=== PATIENT | female | born 1985 | race Caucasian/White ===

== ENCOUNTER 2020-01-21 09:42 | Outpatient (REF) | payer MEDICAID, SELFPAY ==
[2020-01-21 10:16] LABS: Hematocrit 37.6 % (37-47); Mean Corpuscular HGB Conc 31.9 g/dl (31.0-35.0); Mean Corpuscular Volume 84.5 fL (80-98); Mean Platelet Volume 10.5 fL (9.4-12.3); Platelet Count 241 X10*3/uL (160-400); Red Blood Count 4.45 X10*6/uL (4.20-5.50); Red Cell Distribution Width 13.1 % (11.0-16.0); White Blood Count 7.4 X10*3/uL (4.8-10.8)
[2020-01-21 10:47] LABS: Estimated Average Glucose 114 mg/dL; Hemoglobin A1c % 5.6 %
[2020-01-21 10:54] LABS: Alanine Aminotransferase 19 U/L (0-31); Albumin Level 4.3 g/dL (3.5-5.0); Alkaline Phosphatase 102 U/L (39-117); Anion Gap 12 (12-20); Aspartate Amino Transferase 15 U/L (5-31); Bilirubin Total 0.6 mg/dL (0.0-1.0); Blood Urea Nitrogen 8 mg/dL (9-16); Calcium 8.7 mg/dL (8.4-10.2); Carbon Dioxide 27 mmol/L (22-29); Chloride 105 mmol/L (96-108); Cholesterol 143 mg/dL; Creatinine Urine 133.56 mg/dL; Estimated Glomerular Filt Rate > 60; Glucose Fasting 101 mg/dL (60-99); HDL Cholesterol 38 mg/dL; LDL Cholesterol Calculated 86 mg/dl; Microalbum/Creatinine Ratio Ur 3.7 ug/mg cr; Potassium 4.2 mmol/l (3.3-5.1); Sodium 140 mmol/L (135-145); Total Protein 7.1 g/dL (6.5-8.0); Triglycerides 96 mg/dL
[2020-01-21 11:04] LABS: TSH reflex Free T4 1.77 mIU/mL (0.32-4.0); Vitamin D 25-OH Total 13.3 ng/mL (>30)
== END 2020-01-21 09:43 | disposition home or self-care (01) ==
LOC: HO.LAB 09:42
PROVIDERS: PCP Nurse Practitioner Family; Visit Provider Nurse Practitioner Family
DX: G43.909 Migraine, unspecified, not intractable, without status migrainosus (principal); R60.0 Localized edema; Z71.89 Other specified counseling
CPT/HCPCS: 36415; 80053; 80061; 82043; 82306; 83036; 84443; 85027

== ENCOUNTER → 2020-01-30 08:34 | Outpatient (BNVA) | payer MEDICAID, SELFPAY | PROVIDERS: PCP Nurse Practitioner Family; Referring Provider Nurse Practitioner Family; Visit Provider Surgery | DX: L73.2 Hidradenitis suppurativa (principal) | CPT/HCPCS: 99212 ==

== ENCOUNTER 2020-02-20 06:08 | Day surgery (SDC) | payer MEDICAID, SELFPAY ==
[2020-02-13 14:07] VITALS: BMI 44.0
--- NOTE | 2020-02-17 12:04 | HO.ANESPROP2 ---
Documented by User: Gloria Nayak 02/17/20 12:05 HPI - Anesthesia Eval Consult details Narrative: 34yo F for Excision Hidradenitis Groin PMFSH Past Medical History Medical History Chronic back pain Depression Hidradenitis suppurativa History of anemia Hx of migraines Morbid obesity Surgical History Surgical History History of hysterectomy (~01/2019) History of tubal ligation (~2015) Social History Social History Smoking Status: Never smoker Use of substances other than those prescribed or required for medical reasons: No Have you been hit, kicked, punched, or otherwise hurt by someone within the past year? If so, by whom?: No Advance Directives: No Advance Directives Information Provided: No Advance Directives on File: No Recently lost weight without trying: No Meds Allergies Allergy/AdvReac Type Severity Reaction Status Date / Time No Known Allergies Allergy Unverified 02/13/20 14:07 Home Medications Medication Instructions Recorded Confirmed Type propranolol 40 mg tablet 40 mg PO DAILY tab 01/30/20 02/13/20 History cholecalciferol (vitamin D3) 125 mcg PO DAILY 02/13/20 02/13/20 History [Vitamin D3] Exam Exam Date and Time: February 17, 2020 1204 Height,Weight and Vital Signs: Height 5 ft 2 in Weight 109.316 kg Pertinent Lab Results Pertinent Lab Results: Laboratory Tests 01/21/20 01/21/20 10:00 10:00 WBC 7.4 Hgb 12.0 Hct 37.6 Plt Count 241 Sodium 140 Potassium 4.2 Chloride 105 Carbon Dioxide 27 BUN 8 L Creatinine 0.69 Assessment and Plan Assessment Anesthesia Assessment: Chart Reviewed Documented by User: Paty Murphy 02/20/20 07:33 HPI - Anesthesia Eval Consult details Narrative: 34yo female patient for excision of hidradenitis Right groin PMFSH Past Medical History Medical History Chronic back pain Depression Hidradenitis suppurativa History of anemia Hx of migraines Morbid obesity Family History Family history of problems with anesthesia: No Surgical History Surgical History History of hysterectomy (~01/2019) History of tubal ligation (~2015) History of Problems with Anesthesia: No Social History Social History Smoking Status: Never smoker Use of substances other than those prescribed or required for medical reasons: No Have you been hit, kicked, punched, or otherwise hurt by someone within the past year? If so, by whom?: No Advance Directives: No Advance Directives Information Provided: No Advance Directives on File: No Recently lost weight without trying: No Meds Allergies Allergy/AdvReac Type Severity Reaction Status Date / Time No Known Allergies Allergy Unverified 02/13/20 14:07 Home Medications Medication Instructions Recorded Confirmed Type propranolol 40 mg tablet 40 mg PO DAILY tab 01/30/20 02/13/20 History cholecalciferol (vitamin D3) 125 mcg PO DAILY 02/13/20 02/13/20 History [Vitamin D3] Exam Height,Weight and Vital Signs: Vital Signs Temp Pulse Resp BP Pulse Ox 02/20/20 06:35 97.4 F 83 16 121/67 98 Airway Mallampati Class: II TM Dist: >3cm Neck ROM: Full Loose/Missing/Broken Teeth: No Heart: RRR Lungs: CTAB Assessment and Plan Assessment Anesthesia Assessment: Anesthesia Plan Discussed and Chart Reviewed Final Anesthetic Review NPO: Yes ASA Class: III Final Preanesthetic Review: No Changes in Pt Med Stat, Meds/Allgs Chart Reviewed, Consent Obtained/Reviewed and Anes Risks/Benef Reviewed Patient Risk: Intermediate Procedure Risk: Low Anesthetic Plan Anesthetic Plan: GA Disposition: Standard PACU
[2020-02-20] VITALS (8 sets, daily range): BP systolic 106–128; BP diastolic 67–76; PULSE 83–102; RESP 12–20; TEMP 36.1–36.7; O2SAT 93–99
[2020-02-20] MEDS: Lactated Ringers 1,000 ML 100 ML IVCONT (06:42)
[2020-02-20] MEDS: ceFAZolin Sodium/Dextrose,Iso 2 GM/50 ML PIGGYBACK IV (06:43)
--- NOTE | 2020-02-20 07:25 | MHC.SHP ---
Pre-Procedural Eval Section B Chief Complaint: Hidradenitis Suppurativa Allergies: Allergies Allergy/AdvReac Type Severity Reaction Status Date / Time No Known Allergies Allergy Unverified 02/13/20 14:07 Plan Patient has been examined and remains a candidate for the planned procedure
--- NOTE | 2020-02-20 08:12 | PM.OP ---
Brief Operative Note Date of Service: 02/20/20 Pre-op diagnosis: hidradenitis R groinj Post-op diagnosis: same Procedure: exc of hidradenitis R groin Surgeon: Manjinder Alarcon MD Anesthesia: GLMA Estimated blood loss (mL): 10 Pathology: other (hidradenitis) Condition: stable Disposition: PACU
[2020-02-20] MEDS: oxyCODONE HCl Immed Release 5 MG TABLET 10 MG PO (08:30)
--- NOTE | 2020-02-20 08:35 | OP_ITS ---
SURGEON: Manjinder Alarcon MD INDICATIONS: The patient is a 34-year-old female with note of recurrent area of pain, swelling, and tenderness with drainage on the right groin. She was seen in the office and she was diagnosed to have hidradenitis suppurativa of an area in the right groin at the medial thigh. She understood the technique of excision and she wanted this under anesthesia because of the size and location. She is aware of the risks, benefits, and alternatives. PREOPERATIVE DIAGNOSIS: Hidradenitis suppurativa, right groin. POSTOPERATIVE DIAGNOSIS: Hidradenitis suppurativa, right groin. PROCEDURE PERFORMED: Excision of hidradenitis suppurativa, right groin. ESTIMATED BLOOD LOSS: COMPLICATIONS: ANESTHESIA: ASSISTANTS: SPECIMENS: DESCRIPTION OF PROCEDURE: She was brought to the operating room, placed supine on the table in extreme frogleg position under general anesthesia via laryngeal mask airway. The thighs on both sides were taped apart with wide tape to allow better visualization of the area of the right groin. The area of the induration was prepped and draped in usual sterile fashion. This was near the perineum in the medial aspect of the thigh. A surgical time-out was done. The patient received cefazolin 2 g IV preoperatively. I infiltrated the planned line of incision using a blade #15. I then made an incision around the skin around the area of induration using blade #15, it was carried down to full-thickness skin and subcutaneous fat using electrocautery. We excised all the involved skin and subcutaneous layer using electrocautery. This was sent as specimen. The entire indurated area was included. The open wound therefore measured about 7 cm long and about 2.5 cm wide. I copiously irrigated the area. I made sure that there were no other indurated areas in the deep subcutaneous layer. I then proceeded to undermine both sides to allow closure without tension. I closed incision with multiple nylon 3-0 interrupted sutures. I infiltrated the area with Marcaine 0.5% for postop analgesia. Dressings were then applied. The patient tolerated procedure well and there were no complications noted. Initial and final counts of sponge and instruments were correct. Estimated blood loss was about 10 mL. The patient was extubated without difficulty and transferred to recovery room with stable vital signs. MD JANAK Sandoval/NOLVIA / [id number] [place]IL[place]
--- NOTE | 2020-02-20 09:56 | HO.POSTANES ---
Post Anesthesia Evaluation Post Anesthesia Evaluation Vital Signs: Vital Signs Temp Pulse Resp BP Pulse Ox 02/20/20 09:10 98.0 F 86 16 106/69 97 02/20/20 08:55 88 18 111/70 97 02/20/20 08:40 87 20 106/76 97 02/20/20 08:25 92 12 122/73 93 02/20/20 08:20 95 18 123/70 95 02/20/20 08:15 94 18 128/72 99 02/20/20 08:10 97.0 F 102 H 20 124/72 97 02/20/20 06:35 97.4 F 83 16 121/67 98 Anesthesia: General LMA Mental Status: Awake Pain Control: Satisfactory Nausea/Vomiting: None Hydration: Adequate Anesthesia-Related Issues: No Anes. Related Issues
== END 2020-02-20 09:53 | disposition home or self-care (01) ==
PROVIDERS: PCP Nurse Practitioner Family; Visit Provider Surgery
PROC: (CPT 11462; principal; 2020-02-20 07:30)
DX: L73.2 Hidradenitis suppurativa (principal)
CPT/HCPCS: 11462; 88305; J0690; J1100; J1170; J2250; J2405; J3010

== ENCOUNTER → 2020-03-05 09:34 | Outpatient (BNVA) | payer MEDICAID, SELFPAY | PROVIDERS: PCP Nurse Practitioner Family; Referring Provider Nurse Practitioner Family; Visit Provider Surgery | DX: L73.2 Hidradenitis suppurativa (principal) | CPT/HCPCS: 99212 ==

== ENCOUNTER → 2020-03-22 09:55 | Outpatient (BNVA) | payer MEDICAID, SELFPAY | PROVIDERS: PCP Nurse Practitioner Family; Visit Provider Surgery | DX: L73.2 Hidradenitis suppurativa (principal) | CPT/HCPCS: 99212 ==

== ENCOUNTER 2020-08-07 12:41 | Outpatient (REF) | payer MEDICAID, SELFPAY ==
--- NOTE | ~2020-08-07 | US_ITS ---
EXAMINATION: US VENOUS ULTRASOUND WITH DOPPLER LOWER EXTREMITY, BILATERAL CLINICAL INFORMATION: Lower extremity edema. Assess for occult DVT. COMPARISON: None TECHNIQUE: Ultrasound of the deep veins is performed from the hip to the calf with compression sonography and color and pulse Doppler assessment. Spectral analysis with color-flow imaging is performed. FINDINGS: RIGHT: There is normal venous compression and respiratory variation and augmented flow. The visualized common femoral vein, superficial femoral vein, profunda femoral vein, popliteal vein, and the trifurcation region shows no evidence of deep venous thrombosis. No popliteal fossa cyst. LEFT: There is normal venous compression and respiratory variation and augmented flow. The visualized common femoral vein, superficial femoral vein, profunda femoral vein, popliteal vein, and the trifurcation region shows no evidence of deep venous thrombosis. Although the left peroneal veins are not optimally visualized, there is normal Doppler and no evidence of DVT. No popliteal fossa cyst demonstrated. US/US venous duplex LE BI IMPRESSION: No DVT demonstrated in the bilateral lower extremity.
== END 2020-08-07 12:42 | disposition home or self-care (01) ==
LOC: HO.US 12:41
PROVIDERS: Visit Provider Nurse Practitioner Family
DX: R60.0 Localized edema (principal); I73.89 Other specified peripheral vascular diseases; I87.2 Venous insufficiency (chronic) (peripheral)
CPT/HCPCS: 93970

== ENCOUNTER → 2020-12-25 16:23 | Outpatient (BNVA) | payer MEDICAID, SELFPAY | PROVIDERS: PCP Nurse Practitioner Family; Referring Provider Nurse Practitioner Family; Visit Provider Physician Assistant Surgical ==

== ENCOUNTER → 2020-12-28 08:30 | Outpatient (BNVA) | payer MEDICAID, SELFPAY | PROVIDERS: PCP Nurse Practitioner Family; Visit Provider Surgery ==

== ENCOUNTER 2021-01-02 07:50 | Outpatient (REF) | payer MEDICAID, SELFPAY ==
--- NOTE | ~2021-01-02 | XR_ITS ---
EXAMINATION: XR CHEST CLINICAL INFORMATION: Obesity COMPARISON: None TECHNIQUE: 2 views of the chest were obtained. FINDINGS: No significant abnormality is noted involving the heart, lungs, mediastinum, bony thorax or soft tissues. XR/XR chest 2V IMPRESSION: Unremarkable examination.
--- NOTE | 2021-01-02 07:56 | ECG_ITS ---
Test Reason : obesity Blood Pressure : / mmHG Vent. Rate : 079 BPM Atrial Rate : 079 BPM P-R Int : 156 ms QRS Dur : 082 ms QT Int : 414 ms P-R-T Axes : 037 014 -02 degrees QTc Int : 474 ms Normal sinus rhythm Normal ECG No previous ECGs available Referred By: Daniel Hamm Electronically Signed By:CA CATHERINE
[2021-01-02 08:25] LABS: MANUAL DIFF FLAG NO
[2021-01-02 08:36] LABS: Eosinophils Absolute Auto 0.1 X10*3/uL (0.0-0.4); Eosinophils Percent Auto 1.2 % (0-4); Hematocrit 37.7 % (37-47); Hemoglobin 12.1 g/dl (12.0-16.0); Imm Gran Abs Auto 0.03 X10*3/uL (0.00-0.03); Imm Gran Pct Auto 0.5 % (0.0-0.4); Lymphocytes Absolute Auto 1.4 X10*3/uL (1.2-4.9); Lymphocytes Percent Auto 25.3 % (20-40); Mean Corpuscular HGB Conc 32.1 g/dl (31.0-35.0); Mean Corpuscular Hemoglobin 26.4 pg (27.0-33.0); Mean Corpuscular Volume 82.1 fL (80-98); Mean Platelet Volume 10.1 fL (9.4-12.3); Monocytes Absolute Auto 0.3 X10*3/uL (0.1-1.2); Monocytes Percent Auto 6.1 % (2-11); Neutrophils Absolute Auto 3.8 X10*3/uL (2.0-8.3); Neutrophils Percent Auto 66.9 % (45-73); Platelet Count 245 X10*3/uL (160-400); Red Blood Count 4.59 X10*6/uL (4.20-5.50); Red Cell Distribution Width 13.2 % (11.0-16.0); White Blood Count 5.6 X10*3/uL (4.8-10.8)
[2021-01-02 09:01] LABS: Estimated Average Glucose 120 mg/dL; Hemoglobin A1c % 5.8 %
[2021-01-02 09:04] LABS: Alanine Aminotransferase 23 U/L (0-31); Albumin Level 4.6 g/dL (3.5-5.0); Alkaline Phosphatase 104 U/L (39-117); Anion Gap 16 (12-20); Aspartate Amino Transferase 22 U/L (5-31); Bilirubin Total 1.5 mg/dL (0.0-1.0); Blood Urea Nitrogen 13 mg/dL (9-16); C Reactive Protein 1.12 mg/dL (< or = 0.50); Calcium 9.4 mg/dL (8.4-10.2); Carbon Dioxide 24 mmol/L (22-29); Chloride 104 mmol/L (96-108); Cholesterol 173 mg/dL; Estimated Glomerular Filt Rate > 60; Glucose Random 119 mg/dL (60-115); HDL Cholesterol 33 mg/dL; Iron 80 mcg/dL (30-160); LDL Cholesterol Calculated 109 mg/dl; Percent Iron Saturation 22 % (15-50); Potassium 3.8 mmol/L (3.3-5.1); Sodium 140 mmol/L (135-145); Total Iron Binding Capacity 368 mcg/dL (228-428); Total Protein 7.7 g/dL (6.5-8.0); Triglycerides 155 mg/dL; Unsaturated Iron Binding 288 ug/dL
[2021-01-02 09:25] LABS: Insulin 25 uU/mL (2-29); Vitamin D 25-OH Total 22.5 ng/mL (>30)
[2021-01-02 09:44] LABS: Folate 16.9 ng/mL (> or = 4.0); Vitamin B12 246 pg/mL (200-900)
[2021-01-02 09:48] LABS: Ferritin 95 ng/mL (10-122)
[2021-01-03 11:59] LABS: H Pylori Breath Test Negative (Negative)
[2021-01-04 12:50] LABS: Calcium (PTHI) 9.3 mg/dL (8.6-10.2); PTHI 42 pg/mL (14-64)
[2021-01-06 15:41] LABS: Zinc 72 mcg/dL (60-130)
[2021-01-07 10:42] LABS: Vitamin B1 7 nmol/L (8-30)
[2021-01-09 19:01] LABS: Vitamin A 28 mcg/dL (38-98)
== END 2021-01-02 07:51 | disposition home or self-care (01) ==
LOC: HO.XRAY 07:50
PROVIDERS: PCP Nurse Practitioner; Visit Provider Surgery
DX: I10 Essential (primary) hypertension (principal); E11.9 Type 2 diabetes mellitus without complications; E66.01 Morbid (severe) obesity due to excess calories; Z11.0 Encounter for screening for intestinal infectious diseases
CPT/HCPCS: 36415; 71046; 80053; 80061; 82306; 82607; 82728; 82746; 83013; 83036; 83525; 83540; 83970; 84425; 84443; 84590; 84630; 85025; 86140; 93005; 99211

== ENCOUNTER → 2021-01-28 08:08 | Outpatient (BNVA) | payer MEDICAID, SELFPAY | PROVIDERS: PCP Nurse Practitioner Family; Visit Provider Surgery ==

== ENCOUNTER → 2021-02-01 08:38 | Outpatient (BNVA) | payer MEDICAID, SELFPAY | PROVIDERS: PCP Nurse Practitioner Family; Referring Provider Nurse Practitioner; Visit Provider Dietitian, Registered | DX: E66.01 Morbid (severe) obesity due to excess calories (principal); Z68.41 Body mass index [BMI] 40.0-44.9, adult | CPT/HCPCS: 97802 ==

== ENCOUNTER 2021-02-05 07:57 | Outpatient (REF) | payer MEDICAID, SELFPAY ==
--- NOTE | ~2021-02-05 | FL_ITS ---
EXAMINATION: XR GI SERIES CLINICAL INFORMATION: Obesity COMPARISON: None TECHNIQUE: Upper GI was performed using thin and thick barium and effervescent granules FINDINGS: Esophageal motility is normal.. No hernia or reflux is seen. The stomach and duodenum are normal-appearing. No fold thickening, mass, ulcer or stricture is seen FLUOROSCOPY TIME: 0.5 minutes DOSE AREA PRODUCT: 6.7 mares per centimeter squared. 18 images. FL/FL upper GI series IMPRESSION: Unremarkable examination.
--- NOTE | ~2021-02-05 | US_ITS ---
EXAMINATION: US COMPLETE ABDOMEN WITH LIVER ELASTOGRAPHY CLINICAL INFORMATION: Obesity COMPARISON: None. TECHNIQUE: Real-time imaging of the abdominal viscera. Noninvasive ultrasound liver fibrosis assessment is performed using Denis ElastPQ point quantification shear wave elastography (pSWE) with a C5-2 MHz transducer. Multiple elastography samples are obtained. FINDINGS: PANCREAS: Normal. ABDOMINAL AORTA: The proximal, middle, and distal aortic segments are normal in caliber. INFERIOR VENA CAVA: Visualized portions are normal. LIVER: Liver echotexture may be slightly increased. The liver demonstrates normal size and contour. No focal lesion or intrahepatic biliary duct dilatation. The right lobe measures 15 cm in length. The left lobe measures 10 cm in length. Portal flow is normal/hepatopedal Shear wave liver elastography median stiffness is 2.7 m/s (reference: normal median stiffness is 1.3 m/s or less). IQR/median stiffness to assess sampling precision is 0.28 (reference: good quality data set is IQR/median stiffness of 0.15 or less). GALLBLADDER: Normal. The gallbladder is physiologically distended without evidence of stones, sludge, polyps, wall thickening or pericholecystic fluid. COMMON BILE DUCT: Normal in caliber measuring 0.3 cm in diameter. RIGHT KIDNEY: Normal. No hydronephrosis. No renal calculi or focal parenchymal lesions. The kidney measures 12.3 cm in maximum dimension. LEFT KIDNEY: Normal. No hydronephrosis. No renal calculi or focal parenchymal lesions. The kidney measures 12.7 cm in maximum dimension. SPLEEN: Normal. The spleen measures 12.6 cm in maximum dimension. FREE FLUID: None. US/US abdomen comp w elastography IMPRESSION: 1. Impression: Slightly echogenic liver. 2. Liver elastography: Limited due to sampling error. REFERENCE: Society of Radiologists in Ultrasound Liver Stiffness Thresholds (2020): LIVER STIFFNESS THRESHOLDS: *Liver Stiffness equal or less than 1.3 m/s: High probability of being normal. *Liver Stiffness less than 1.7 m/s: In the absence of other known clinical signs, rules out compensated advanced chronic liver disease. *Liver Stiffness 1.7-2.1 m/s: Suggestive of compensated advanced chronic liver disease but need further test for confirmation. *Liver Stiffness over 2.1 m/s: Rules in compensated advanced chronic liver disease. *Liver Stiffness over 2.4 m/s: Suggestive of clinically significant portal hypertension. QUALITY OF DATA SET: *IQR/Median value equal or less than 0.15 implies a quality data set. *IQR/Median value over 0.15 implies a poor quality data set. SIGNIFICANT CHANGE FROM PRIOR EXAM: Significant change if liver stiffness measurement is 10% or greater from prior exam. OTHER CONSIDERATIONS: The stage of liver fibrosis may be overestimated in the setting of acute hepatitis, liver inflammation, elevated liver function tests, hepatic vascular congestion, obstructive cholestasis, non-fasting state, and infiltrative diseases such as amyloidosis and lymphoma. In some patients with NAFLD, the liver stiffness thresholds for compensated advanced chronic liver disease may be lower. In causes other than viral hepatitis and NAFLD, liver stiffness thresholds are not well established.
== END 2021-02-05 07:58 | disposition home or self-care (01) ==
LOC: HO.US 07:57
PROVIDERS: Visit Provider Surgery
DX: Z01.818 Encounter for other preprocedural examination (principal); E66.01 Morbid (severe) obesity due to excess calories; K21.9 Gastro-esophageal reflux disease without esophagitis; E11.9 Type 2 diabetes mellitus without complications; I10 Essential (primary) hypertension
CPT/HCPCS: 74240; 76705; 76981

== ENCOUNTER → 2021-02-20 07:58 | Outpatient (BNVA) | payer MEDICAID, SELFPAY | PROVIDERS: PCP Nurse Practitioner Family; Visit Provider Surgery ==

== ENCOUNTER → 2021-03-04 07:59 | Outpatient (BNVA) | payer MEDICAID, SELFPAY | PROVIDERS: PCP Nurse Practitioner Family; Referring Provider Surgery; Visit Provider Dietitian, Registered | DX: E66.01 Morbid (severe) obesity due to excess calories (principal) | CPT/HCPCS: 97803 ==

== ENCOUNTER 2021-03-09 10:38 | Outpatient (REF) | payer MEDICAID, SELFPAY ==
[2021-03-13 19:42] LABS: Vitamin A 27 mcg/dL (38-98)
== END 2021-03-09 10:39 | disposition home or self-care (01) ==
LOC: HO.LAB 10:38
PROVIDERS: PCP Nurse Practitioner; Visit Provider Physician Assistant
DX: E50.9 Vitamin A deficiency, unspecified (principal)
CPT/HCPCS: 36415; 84590

== ENCOUNTER → 2021-03-25 07:47 | Outpatient (BNVA) | payer MEDICAID, SELFPAY | PROVIDERS: PCP Nurse Practitioner Family; Visit Provider Surgery ==

== ENCOUNTER 2022-02-26 15:04 | Outpatient (REF) | payer MEDICAID, SELFPAY ==
--- NOTE | 2022-02-26 09:00 | EMG_ITS ---
Please see scanned EMG / Nerve Conduction Report. MTDD
== END 2022-02-26 15:05 | disposition home or self-care (01) ==
LOC: HO.NEURO 15:04
PROVIDERS: PCP Registered Nurse; Visit Provider Registered Nurse
DX: R20.0 Anesthesia of skin (principal); R20.2 Paresthesia of skin
CPT/HCPCS: 95885; 95910

== ENCOUNTER 2022-02-27 15:16 | Outpatient (REF) | payer MEDICAID, SELFPAY ==
--- NOTE | ~2022-02-27 | US_ITS ---
EXAMINATION: US VENOUS ULTRASOUND WITH DOPPLER LOWER EXTREMITY, LEFT CLINICAL INFORMATION: Left lower extremity edema COMPARISON: None TECHNIQUE: Ultrasound of the deep veins is performed from the hip to the calf with compression sonography and color and pulse Doppler assessment. Spectral analysis with color-flow imaging is performed. FINDINGS: There is normal venous compression and respiratory variation and augmented flow. The visualized common femoral vein, superficial femoral vein, profunda femoral vein, popliteal vein, and the trifurcation region shows no evidence of deep venous thrombosis. There is no significant popliteal fossa cyst. The right common femoral vein appeared normal. If the patient's symptoms persist, followup ultrasound in 5 days 7 days might be of value to exclude proximal propagation from a non-visualized calf vein. US/US venous duplex LE LT IMPRESSION: No DVT demonstrated in the left lower extremity.
== END 2022-02-27 15:17 | disposition home or self-care (01) ==
LOC: HO.US 15:16
PROVIDERS: PCP Registered Nurse; Visit Provider Nurse Practitioner Primary Care
DX: M79.89 Other specified soft tissue disorders (principal)
CPT/HCPCS: 93971

== ENCOUNTER → 2022-07-09 15:40 | Outpatient (BNVA) | payer MEDICAID, SELFPAY | PROVIDERS: PCP Registered Nurse; Visit Provider Physician Assistant Surgical | DX: E66.01 Morbid (severe) obesity due to excess calories (principal); Z68.42 Body mass index [BMI] 45.0-49.9, adult | CPT/HCPCS: 99212 ==

== ENCOUNTER 2022-07-21 12:35 | Outpatient (REF) | payer MEDICAID, SELFPAY ==
--- NOTE | ~2022-07-21 | XR_ITS ---
EXAMINATION: XR CHEST CLINICAL INFORMATION: Bariatric service evaluation. E66.01 COMPARISON: Chest radiographs 01/02/2021 TECHNIQUE: 2 views of the chest were obtained. FINDINGS: Lungs clear. No airspace consolidation or groundglass opacity. Heart normal in size. Vascularity normal. Costophrenic sulci are clear. The hilar and mediastinal contours and visualized bony structures are unremarkable. XR/XR chest 2V IMPRESSION: Unremarkable examination.
--- NOTE | 2022-07-21 12:44 | ECG_ITS ---
Test Reason : MORBID OBESITY Blood Pressure : / mmHG Vent. Rate : 078 BPM Atrial Rate : 078 BPM P-R Int : 146 ms QRS Dur : 082 ms QT Int : 408 ms P-R-T Axes : 038 011 -09 degrees QTc Int : 465 ms Normal sinus rhythm with sinus arrhythmia Normal ECG When compared with ECG of 02-JAN-2021 08:02, No significant change was found Referred By: Fermin George Electronically Signed By:Sander Diaz
[2022-07-21 12:55] LABS: MANUAL DIFF FLAG NO
[2022-07-21 14:32] LABS: Estimated Average Glucose 114 mg/dL; Hemoglobin A1c % 5.6 %
[2022-07-21 14:34] LABS: Basophils Percent Auto 0.3 % (0-2); Eosinophils Absolute Auto 0.1 X10*3/uL (0.0-0.4); Eosinophils Percent Auto 1.6 % (0-4); Hematocrit 38.8 % (37.0-47.0); Hemoglobin 12.5 g/dl (12.0-16.0); Imm Gran Abs Auto 0.02 X10*3/uL (0.00-0.03); Imm Gran Pct Auto 0.3 % (0.0-0.4); Mean Corpuscular HGB Conc 32.2 g/dl (31.0-35.0); Mean Corpuscular Volume 83.8 fL (80.0-98.0); Mean Platelet Volume 10.8 fL (9.4-12.3); Monocytes Absolute Auto 0.5 X10*3/uL (0.1-1.2); Neutrophils Absolute Auto 4.1 x10*3/uL (2.0-8.3); Neutrophils Percent Auto 60.8 % (45-73); Platelet Count 261 X10*3/uL (160-400); Red Blood Count 4.63 X10*6/uL (4.20-5.50); Red Cell Distribution Width 13.3 % (11.0-16.0); White Blood Count 6.8 X10*3/uL (4.8-10.8)
[2022-07-21 14:41] LABS: Alanine Aminotransferase 24 U/L (0-31); Albumin Level 4.5 g/dL (3.5-5.0); Alkaline Phosphatase 90 U/L (39-117); Anion Gap 12 (12-20); Aspartate Amino Transferase 18 U/L (5-31); Blood Urea Nitrogen 8 mg/dL (9-16); C Reactive Protein 0.56 mg/dL (< or = 0.50); Calcium 9.2 mg/dL (8.4-10.2); Carbon Dioxide 27 mmol/L (22-29); Chloride 107 mmol/L (96-108); Cholesterol 156 mg/dL; Estimated Glomerular Filt Rate > 60; Glucose Random 91 mg/dL (60-115); HDL Cholesterol 34 mg/dL; Iron 31 mcg/dL (30-160); LDL Cholesterol Calculated 99 mg/dl; Percent Iron Saturation 10 % (15-50); Potassium 4.2 mmol/L (3.3-5.1); Sodium 142 mmol/L (135-145); Total Iron Binding Capacity 308 mcg/dL (228-428); Total Protein 7.2 g/dL (6.5-8.0); Triglycerides 117 mg/dL; Unsaturated Iron Binding 277 ug/dL
[2022-07-21 15:11] LABS: Ferritin 64 ng/mL (10-122); Folate 9.9 ng/mL (> or = 4.0); Insulin 13 uU/mL (2-29); TSH reflex Free T4 2.26 uIU/mL (0.32-4.0); Vitamin B12 350 pg/mL (200-900); Vitamin D 25-OH Total 16.6 ng/mL (>30)
[2022-07-24 14:58] LABS: Zinc 75 mcg/dL (60-130)
[2022-07-24 18:04] LABS: Calcium (PTHI) 9.5 mg/dL (8.6-10.2); PTHI 52 pg/mL (16-77)
[2022-07-25 06:04] LABS: Vitamin A 25 mcg/dL (38-98)
[2022-07-31 06:13] LABS: Vitamin B1 6 nmol/L (8-30)
== END 2022-07-21 12:36 | disposition home or self-care (01) ==
LOC: HO.LAB 12:35
PROVIDERS: PCP Registered Nurse; Visit Provider Physician Assistant Surgical
DX: E66.01 Morbid (severe) obesity due to excess calories (principal); D64.9 Anemia, unspecified; E11.9 Type 2 diabetes mellitus without complications; E50.9 Vitamin A deficiency, unspecified; E51.9 Thiamine deficiency, unspecified; E53.8 Deficiency of other specified B group vitamins
CPT/HCPCS: 36415; 71046; 80053; 80061; 82306; 82607; 82728; 82746; 83036; 83525; 83540; 83970; 84425; 84443; 84590; 84630; 85025; 86140; 93005

== ENCOUNTER → 2022-07-30 08:18 | Outpatient (BNVA) | payer MEDICAID, SELFPAY | PROVIDERS: PCP Registered Nurse; Referring Provider Physician Assistant Surgical; Visit Provider Dietitian, Registered | DX: E66.01 Morbid (severe) obesity due to excess calories (principal); E11.9 Type 2 diabetes mellitus without complications; Z71.3 Dietary counseling and surveillance | CPT/HCPCS: 97802 ==

== ENCOUNTER 2022-08-08 08:46 | Outpatient (REF) | payer MEDICAID, SELFPAY ==
--- NOTE | ~2022-08-08 | US_ITS ---
EXAMINATION: US COMPLETE ABDOMEN WITH LIVER ELASTOGRAPHY CLINICAL INFORMATION: Morbid obesity COMPARISON: Abdominal ultrasound 02/05/2021 TECHNIQUE: Real-time imaging of the abdominal viscera. Noninvasive ultrasound liver fibrosis assessment is performed using Denis ElastPQ point quantification shear wave elastography (2D-SWE) with a C5-2 MHz transducer. Multiple elastography samples are obtained. FINDINGS: PANCREAS: Visualized portions of pancreas are normal in appearance. ABDOMINAL AORTA: The proximal, middle, and distal aortic segments are normal in caliber. INFERIOR VENA CAVA: Visualized portions are normal. LIVER: The liver is normal in size. Mildly increased echogenicity of the liver diffusely. Liver contour is relatively smooth. No intrahepatic biliary ductal dilatation. No focal hepatic lesion. The right lobe measures 16.6 cm in length. The left lobe measures 10.6 cm in length. Portal flow is hepatopedal Shear wave liver elastography median stiffness is 1.9 m/s (reference: normal median stiffness is 1.3 m/s or less). IQR/median stiffness to assess sampling precision is 0.22 (reference: good quality data set is IQR/median stiffness of 0.15 or less). GALLBLADDER: Normal. The gallbladder is physiologically distended without evidence of stones, sludge, polyps, wall thickening or pericholecystic fluid. Negative sonographic Gonsalez's sign. COMMON BILE DUCT: Normal in caliber measuring 0.4 cm in diameter. RIGHT KIDNEY: Normal. No hydronephrosis. No renal calculi or focal parenchymal lesions. The kidney measures 11.7 cm in maximum dimension. LEFT KIDNEY: Normal. No hydronephrosis. No renal calculi or focal parenchymal lesions. The kidney measures 12 cm in maximum dimension. SPLEEN: Normal. The spleen measures 9.7 cm in maximum dimension. FREE FLUID: None. US/US abdomen comp w elastography IMPRESSION: 1. Diffusely increased echogenicity of the liver. 2. Liver elastography: Limited due to sampling error. REFERENCE: Society of Radiologists in Ultrasound Liver Stiffness Thresholds (2020): LIVER STIFFNESS THRESHOLDS: *Liver Stiffness equal or less than 1.3 m/s: High probability of being normal. *Liver Stiffness less than 1.7 m/s: In the absence of other known clinical signs, rules out compensated advanced chronic liver disease. *Liver Stiffness 1.7-2.1 m/s: Suggestive of compensated advanced chronic liver disease but need further test for confirmation. *Liver Stiffness over 2.1 m/s: Rules in compensated advanced chronic liver disease. *Liver Stiffness over 2.4 m/s: Suggestive of clinically significant portal hypertension. QUALITY OF DATA SET: *IQR/Median value equal or less than 0.15 implies a quality data set. *IQR/Median value over 0.15 implies a poor quality data set. SIGNIFICANT CHANGE FROM PRIOR EXAM: Significant change if liver stiffness measurement is 10% or greater from prior exam. OTHER CONSIDERATIONS: The stage of liver fibrosis may be overestimated in the setting of acute hepatitis, liver inflammation, elevated liver function tests, hepatic vascular congestion, obstructive cholestasis, non-fasting state, and infiltrative diseases such as amyloidosis and lymphoma. In some patients with NAFLD, the liver stiffness thresholds for compensated advanced chronic liver disease may be lower. In causes other than viral hepatitis and NAFLD, liver stiffness thresholds are not well established.
== END 2022-08-08 08:47 | disposition home or self-care (01) ==
LOC: HO.US 08:46
PROVIDERS: PCP Registered Nurse; Visit Provider Physician Assistant Surgical
DX: E66.01 Morbid (severe) obesity due to excess calories (principal); D64.9 Anemia, unspecified; E11.9 Type 2 diabetes mellitus without complications; E50.9 Vitamin A deficiency, unspecified; E51.9 Thiamine deficiency, unspecified; E53.8 Deficiency of other specified B group vitamins
CPT/HCPCS: 76705; 76981

== ENCOUNTER → 2022-08-22 12:30 | Outpatient (BNVA) | payer MEDICAID, SELFPAY | PROVIDERS: PCP Registered Nurse; Visit Provider Counselor Mental Health | DX: E66.01 Morbid (severe) obesity due to excess calories (principal); Z68.42 Body mass index [BMI] 45.0-49.9, adult; Z11.0 Encounter for screening for intestinal infectious diseases | CPT/HCPCS: 99211; 99212 ==

== ENCOUNTER 2022-08-22 18:52 | Outpatient (REF) | payer MEDICAID, SELFPAY ==
[2022-08-24 14:59] LABS: H Pylori Breath Test Negative (Negative)
== END 2022-08-22 18:53 | disposition home or self-care (01) ==
LOC: HO.LNP 18:52
PROVIDERS: Visit Provider Physician Assistant Surgical
DX: E11.9 Type 2 diabetes mellitus without complications (principal); E66.01 Morbid (severe) obesity due to excess calories
CPT/HCPCS: 83013

== ENCOUNTER 2022-09-01 14:55 | Outpatient (REF) | payer MEDICAID, SELFPAY ==
--- NOTE | ~2022-09-01 | XR_ITS ---
EXAMINATION: XR LUMBOSACRAL SPINE CLINICAL INFORMATION: Reason for Exam PAIN COMPARISON: Lumbar spine radiographs 03/02/2017 TECHNIQUE: 3 views of the lumbar spine FINDINGS: 5 nonrib-bearing lumbar-type vertebral bodies. Vertebral body heights are maintained. Alignment is maintained. Mild degenerative disc disease at L5-S1 minimally progressed from prior with loss of disc space height and facet arthropathy. Paravertebral soft tissues are unremarkable. XR/XR lumbar spine 2-3V IMPRESSION: Mild degenerative disc disease at L5-S1 minimally progressed from prior with loss of disc space height and facet arthropathy.
== END 2022-09-01 14:56 | disposition home or self-care (01) ==
LOC: HO.HHCX 14:55
PROVIDERS: Visit Provider Registered Nurse
DX: M53.3 Sacrococcygeal disorders, not elsewhere classified (principal)
CPT/HCPCS: 72100

== ENCOUNTER → 2022-09-10 09:00 | Outpatient (BNVA) | payer MEDICAID, SELFPAY | PROVIDERS: PCP Registered Nurse; Visit Provider Dietitian, Registered | DX: E66.01 Morbid (severe) obesity due to excess calories (principal); E11.9 Type 2 diabetes mellitus without complications; Z68.42 Body mass index [BMI] 45.0-49.9, adult | CPT/HCPCS: 97803 ==

== ENCOUNTER 2022-12-11 12:14 | Outpatient (REF) | payer MEDICAID, SELFPAY ==
--- NOTE | ~2022-12-11 | XR_ITS ---
EXAMINATION: XR LUMBOSACRAL SPINE CLINICAL INFORMATION: Lumbar radiculopathy, low back pain radiating to left leg. Pain for 3 weeks COMPARISON: 09/01/2022 TECHNIQUE: Three views of the lumbosacral spine. FINDINGS: There are 5 nonrib-bearing lumbar-type vertebral bodies. Mild rightward curvature of the lumbar spine. Vertebral body heights are preserved. Mild degenerative changes with loss of disc space height at L5-S1 redemonstrated. Facet arthropathy at L5-S1. XR/XR lumbar spine 2-3V IMPRESSION: Mild degenerative changes with facet arthropathy redemonstrated at L5-S1.
== END 2022-12-11 12:15 | disposition home or self-care (01) ==
LOC: HO.HHCX 12:14
PROVIDERS: Visit Provider Family Medicine
DX: M54.16 Radiculopathy, lumbar region (principal)
CPT/HCPCS: 72100

== ENCOUNTER 2022-12-17 13:38 | Outpatient (AMB) | payer MEDICAID, SELFPAY ==
[2022-12-17 09:06] VITALS: BMI 46.9
--- NOTE | 2022-12-17 09:06 | MHC.OFFVISWM ---
Intake VS Expanded 12/17/22 09:06 Height 5 ft 2 in Weight 256 lb 6.4 oz BMI 46.9 Body Fat 160.7 Body Fat Percentage 62.7 Visceral Mass 28 Water Mass 65.6 Intake Visit Reasons: VIDEO F/U SWL Adult Probation Officer Required: No Allergies No Known Allergies Allergy (Verified 07/09/22 15:45) Medication List - Last Reconciled 12/17/22 by SILVIA Hess cholecalciferol (vitamin D3) 125 mcg PO DAILY cyanocobalamin (vitamin B-12) 500 mcg PO DAILY diclofenac sodium 1% 1 - 2 grams topical TID-QID PRN doxycycline hyclate 100 mg PO iron,carbonyl-vitamin C 65 mg iron- 125 mg (Vitron-C) 1 tab PO DAILY metformin 500 mg PO QAM propranolol 40 mg PO QAM thiamine HCl (vitamin B1) 100 mg PO DAILY vitamin A 2,400 mcg PO DAILY HPI HPI Comments History of Present Illness Details The patient is a pleasant 37 year old female who returns to the clinic for pre-operative surgical weight loss management. They were last seen in the office on 08/22/22, recorded weight at that time was 248.6 pounds, with a BMI of 45.5. Today's weight is 256.4 pounds and BMI is 46.9. There has been a weight lose of 7.8 pounds since initiating the surgical weight loss program on 07/09/22 with a total body weight loss of 2.9 %. Pre op work up completed as follows: SWL classes:? 11/04 BH appts: cleared 08/22/22 ? ? RD appts: cleared 09/10/22 LLabs: 07/21/22-low iron, D, A, B1, B12:350 H. pylori: 08/22/22 CXR: 07/21/22-nad EK07/21/22-normal ABD U/S: 08/08/22-fatty liver UGI: 02/05/21-normal The patient reports she has had her son come back from [place] and has had an increase in hip pain and sciatic pain. She has not followed any meal plan for the last 2 months, and she has not done any exercise. We discuussed the reality of her situation and she does not want to take a break at this time. Agrees to try for one more month to get back on track. Current meal plan includes: 3 Pure Protein shakes ([employer], [employer], [employer]) First shake (1/2 scoop in 8 oz low fat unsweetened almond milk each) at 8am-10am Second shake ( 1/2 scoop in 8 oz unsweetened almond milk) at 12pm-2pm 1 protein bar (Zone Perfect bars at [employer], [facility], or [employer]) at 3pm-5pm. Dinner at 630pm (8 forks of protein and 8 forks of salad/vegetables). Another shake with 1/2 scoop in 8 oz unsweetened almond milk at 8pm-10pm. Drinking 64-80 oz water Current exercise plan includes: walking at lunch for 1/2 hour and treadmill x 30-60 minutes. 3-4 days per week, 300 calories. [facility] Medical History Chronic back pain COVID-19 vaccine series completed Depression Hidradenitis suppurativa History of anemia History of COVID-19 History of postoperative nausea Hx of migraines Hypertension Lower extremity edema Morbid obesity Non-insulin dependent type 2 diabetes mellitus Surgical History History of hysterectomy (~01/2019) History of surgery History of tubal ligation (~2015) Family History Mother Diabetes Father Hypertension Diabetes Asthma Sister Asthma Son No problems noted. Son No problems noted. Son No problems noted. Daughter No problems noted. Social History Household Members Other:: 4 minor children Are you a primary career placement specialist to a significant other at home: Yes Do you presently have visiting nurse or other home services: No Alcohol intake: never Patient Tobacco Use Status: Never used Tobacco Assessment & Plan Assessment & Plan (1) Morbid obesity: Code(s): E66.01 - Morbid (severe) obesity due to excess calories Plan: Discussed giving it one more attempt for a month Change meal plan to : 3 Pure Protein shakes ([employer], [employer], [employer]) First shake (1 scoop in 8 oz low fat unsweetened almond milk each) at 8am-10am Second shake ( 1/2 scoop in 8 oz unsweetened almond milk) at 12pm-2pm 1 protein bar (Zone Perfect bars at [employer], [facility], or [employer]) at 3pm-5pm. Dinner at 630pm (8 forks of protein and 8 forks of salad/vegetables). Another shake with 1/2 scoop in 8 oz unsweetened almond milk at 8pm-10pm. Discussed the importance of exercise and to text me weekly. RTC 1 month Telehealth Telehealth Location of provider rendering services: practice address Location of patient: other Patient Identification confirmed using: Name, : Yes Telehealth method: voice only Patient verbally consented to treatment: Yes Patient verbally consented to billing insurance company: Yes Patient informed of any privacy concerns related to visit: Yes Minutes spent on Phone/Video with Pt.: 12 Coding Level of Care Code Tele Est Pt Level 3 (61649) Diagnoses Morbid obesity E66.01 Time Spent (min) 18
== END 2022-12-17 13:43 | disposition home or self-care (01) ==
LOC: HO.HBS 13:38
PROVIDERS: PCP Registered Nurse; Visit Provider Physician Assistant Surgical
DX: E66.01 Morbid (severe) obesity due to excess calories (principal)
CPT/HCPCS: 99213

== ENCOUNTER → 2022-12-17 13:38 | Outpatient (BNVA) | payer MEDICAID, SELFPAY | PROVIDERS: PCP Registered Nurse; Visit Provider Physician Assistant Surgical ==

== ENCOUNTER → 2023-01-14 16:30 | Outpatient (BNVA) | payer MEDICAID, SELFPAY | PROVIDERS: PCP Registered Nurse; Visit Provider Physician Assistant Surgical ==

== ENCOUNTER 2023-12-14 16:22 | Outpatient (REF) | payer MEDICAID, SELFPAY ==
[2023-12-14 17:32] LABS: MANUAL DIFF FLAG NO
[2023-12-14 17:40] LABS: Basophils Percent Auto 0.1 % (0-2); Eosinophils Absolute Auto 0.1 X10*3/uL (0.0-0.4); Eosinophils Percent Auto 1.6 % (0-4); Hematocrit 38.6 % (37.0-47.0); Hemoglobin 12.4 g/dl (12.0-16.0); Imm Gran Abs Auto 0.04 X10*3/uL (0.00-0.03); Imm Gran Pct Auto 0.5 % (0.0-0.4); Lymphocytes Absolute Auto 2.3 X10*3/uL (1.2-4.9); Lymphocytes Percent Auto 31.4 % (20-40); Mean Corpuscular HGB Conc 32.1 g/dl (31.0-35.0); Mean Corpuscular Hemoglobin 27.4 pg (27.0-33.0); Mean Corpuscular Volume 85.2 fL (80.0-98.0); Monocytes Absolute Auto 0.5 X10*3/uL (0.1-1.2); Neutrophils Absolute Auto 4.4 x10*3/uL (2.0-8.3); Neutrophils Percent Auto 59.4 % (45-73); Platelet Count 263 X10*3/uL (160-400); Red Blood Count 4.53 X10*6/uL (4.20-5.50); Red Cell Distribution Width 13.2 % (11.0-16.0); White Blood Count 7.4 X10*3/uL (4.8-10.8)
[2023-12-14 18:31] LABS: Erythrocyte Sedimentation Rate 16 MM/HR (0-20)
[2023-12-14 18:33] LABS: Rheumatoid Factor < 13.0 IU/mL (<15.0)
[2023-12-14 18:36] LABS: Alanine Aminotransferase 23 U/L (0-31); Albumin Level 4.2 g/dL (3.5-5.0); Alkaline Phosphatase 107 U/L (39-117); Anion Gap 12 (12-20); Aspartate Amino Transferase 16 U/L (5-31); Bilirubin Total 0.6 mg/dL (0.0-1.0); Blood Urea Nitrogen 9 mg/dL (9-16); C Reactive Protein 1.21 mg/dL (< or = 0.50); Calcium 9.8 mg/dL (8.4-10.2); Carbon Dioxide 26 mmol/L (22-29); Chloride 105 mmol/L (96-108); Estimated Glomerular Filt Rate > 60; Glucose Random 99 mg/dL (60-115); Potassium 3.6 mmol/L (3.3-5.1); Sodium 139 mmol/L (135-145); Total Protein 7.2 g/dL (6.5-8.0)
[2023-12-14 18:52] LABS: TSH reflex Free T4 9.25 uIU/mL (0.32-4.0); Vitamin D 25-OH Total 21.7 ng/mL (>30)
[2023-12-17 20:54] LABS: Cyclic Citrullinated Peptide <16 UNITS
== END 2023-12-14 16:23 | disposition home or self-care (01) ==
LOC: HO.HHCL 16:22
PROVIDERS: Visit Provider Registered Nurse
DX: M79.10 Myalgia, unspecified site (principal); E66.01 Morbid (severe) obesity due to excess calories; Z68.43 Body mass index [BMI] 50.0-59.9, adult; M79.644 Pain in right finger(s)
CPT/HCPCS: 36415; 80053; 82306; 84439; 84443; 85025; 85652; 86140; 86200; 86431

== ENCOUNTER 2024-01-05 10:07 | Outpatient (REF) | payer MEDICAID, SELFPAY ==
--- NOTE | ~2024-01-05 | XR_ITS ---
EXAMINATION: XR HAND, RIGHT CLINICAL INFORMATION: Chronic 2nd PIP joint pain. COMPARISON: None available. TECHNIQUE: PA, lateral, and oblique views of the right hand. FINDINGS: There is a degenerative cyst or chronic erosion at the radial aspect of the head of the 2nd proximal phalanx, at the PIP joint. No significant joint space narrowing or active erosion. No fracture or malalignment. No suspicious soft tissue calcification. XR/XR hand RT min 3V IMPRESSION: 1. No acute osseous abnormality. 2. Chronic cyst or erosion at the 2nd PIP joint. No significant joint space narrowing or active erosion. MRI could assess for an active inflammatory process in the setting of pain. Electronically signed by: Markell Carranza MD 01/05/2024 12:38 PM EDT
== END 2024-01-05 10:08 | disposition home or self-care (01) ==
LOC: HO.HHCX 10:07
PROVIDERS: Visit Provider Registered Nurse
DX: M79.644 Pain in right finger(s) (principal)
CPT/HCPCS: 36415; 73130; 84443; 86800

== ENCOUNTER 2024-01-05 10:18 | Outpatient (REF) | payer MEDICAID, SELFPAY ==
[2024-01-05 12:22] LABS: TSH reflex Free T4 1.71 uIU/mL (0.32-4.0)
[2024-01-07 03:43] LABS: Thyroglobulin Antibodies >1000 IU/mL (< or = 1)
== END 2024-01-05 10:19 | disposition home or self-care (01) ==
LOC: HO.HHCL 10:18
PROVIDERS: Visit Provider Registered Nurse
DX: E03.8 Other specified hypothyroidism (principal)
CPT/HCPCS: 36415; 84443; 86800

== ENCOUNTER 2024-02-15 10:34 | Outpatient (REF) | payer MEDICAID, SELFPAY ==
[2024-02-15 12:26] LABS: C Reactive Protein 1.45 mg/dL (< or = 0.50); Uric Acid 5.2 mg/dL (2.4-5.7)
[2024-02-15 12:44] LABS: TSH reflex Free T4 0.83 uIU/mL (0.32-4.0)
[2024-02-18 13:28] LABS: Anti Nuclear Antibody Screen POSITIVE (NEGATIVE)
== END 2024-02-15 10:35 | disposition home or self-care (01) ==
LOC: HO.HHCL 10:34
PROVIDERS: Visit Provider Registered Nurse
DX: M79.10 Myalgia, unspecified site (principal); R79.82 Elevated C-reactive protein (CRP); M25.50 Pain in unspecified joint
CPT/HCPCS: 36415; 84443; 84550; 86038; 86039; 86140

== ENCOUNTER 2024-07-15 09:55 | Outpatient (REF) | payer MEDICAID, SELFPAY ==
--- OUTSIDE RECORDS SUMMARY | 2024-07-15 10:38 | XMS_ITS | Encounter Summary ---
Author Organization [employer] Address [address] [facility] 7t [place] [address] Care Team Providers Care Booth Usher Name Role Phone [facility] Primary Care Provider [phone] Reason for Visit * Reason Onset Date Comments Nurse Triage 01/27/2024 Encounter Details Date Type Department Care Team ([facility] st Contact Info) Description 01/27/2024 Telephone [facility] [address] [place], [place] [phone] [facility] [address] [place] [address] Nurse Triage Social History Tobacco Use Types Packs/Day Years Used Date Smoking Tobacco: Never Smokeless Tobacco: Never Alcohol Use Standard Drinks/Week Comments Never 0 (1 standard drink = 0.6 oz pur e alcohol) Depression Answer Date Recorded Patient Health Questionnaire-9 Score 0 12/25/2023 Patient Health Questionnaire-9 Score 0 12/25/2023 Last PHQ-9: Questionnaire Data Not on file 0 12/25/2023 Housing Stability Answer Date Recorded What is your housing situation today? I have carl melendrez 12/25/[address] you li ve. Do you have problems with any of the following? None of the above 12/25/2023 Food Insecurity Answer Date Recorded Within the past 12 months, y ou worried that your food would run out before you got money to buy more: Not on file 12/25/2023 Within the past 12 months,th e food you bought just didn't last and you didn't have enough money to get more: Never True Transportation Answer Date Recorded In the past 12 months, has l ack of transportation kept you from medical appts, meetings, work or from getting things needed for daily living? No 12/25/2023 Utilities Answer Date Recorded In the past 12 months, has t he electric, gas, oil or water company threatened to shut off services in your home? No 12/25/2023 Depression Answer Date Recorded Patient Health Questionnaire-2 Score 0 12/25/2023 Internet Access Answer Date Recorded Internet Access Q1 Yes 12/25/2023 Internet Access Q2 Not on file 12/25/2023 Comments No Sex and Gender Information Value Date Recorded Sex Assigned at Female 01/27/2022 10:15 AM EDT Legal Sex Female 10:15 AM EDT Gender Identity Female 01/27/2022 10:15 AM EDT Sexual Orientation Straight 01/27/2022 10 :15 AM EDT documented as of this encounter Miscellaneous Notes * Telephone Encounter - Marcela Martinez RN - 01/27/2024 2:51 PM EDT Triage call Pt reports bilateral lower extremity pain and swelling from knees down to feet. Pt reports as a chronic problem but the swelling has increased lately. Pt denies redness, warmth, lump along vein. Pt denies any indentation in the legs. Pt is able to ambulate with some pain and a limp every so often. Pt reports tylenol taken for pain without relief. Pt is advised to keep legs elevated when sitting. Possibly alternate tylenol with motrin unless provider has instructed not to. Pt agrees with disposition. Pt is offered WIC but declines. ASK apt with PCP 02/08/24 @ 1130am. Insurance is verified as active prior to booking. Protocol Used: Leg Pain (Adult) Protocol-Based Disposition: See in Office or Video Visit within 2 Weeks Video visit not offered Positive Triage Question: * Leg pain or muscle cramp is a chronic symptom (recurrent or ongoing AND lasting > 4 weeks) * All higher-acuity triage questions were negative Care Advice Discussed: * Reassurance and Education - Leg Pain * Pain Medicines * Pain Medicines - Extra Notes and Warnings * Reasons To Call Back - Moderate pain (such as limping) lasts more than 3 days - Mild pain lasts more than 7 days - Signs of infection occur (such as spreading redness, warmth, fever) - You become worse * Telephone Encounter - Tyrone Kent - 01/27/2024 2:17 PM EDT Symptom: Leg Pain - Not From Injury Outcome: Schedule an urgent appointment (within 4 hours) or talk to a nurse or provider soon Reason: Swelling Duration : 3 days documented in this encounter Plan of Treatment Not on file documented as of this encounter Visit Diagnoses Not on filedocumented in this encounter Additional Health Concerns Assessment Noted Time PHQ-9 Depression Total Score: 0 12/25/19 24 10:34 AM EDT documented as of this encounter Care Teams Booth Usher Relationship Specialty Start Date End Date Mandie Yee FNP [address] [place] [id number] PCP - General Family Medicine 11/21/21 documented as of this encounter
--- OUTSIDE RECORDS SUMMARY | 2024-07-15 10:39 | XMS_ITS | Encounter Summary ---
Author Organization [employer] Address [address] [facility] 7t [place] [address] Care Team Providers Care Metrology Engineer Name Role Phone [facility] Primary Care Provider [phone] Encounter Details Date Type Department Care Team (Latest Contact Info) Description 07/13/2024 Travel Social History Tobacco Use Types Packs/Day Years Used Date Smoking Tobacco: Never Smokeless Tobacco: Never Alcohol Use Standard Drinks/Week Comments Never 0 (1 standard drink = 0.6 oz pur e alcohol) Depression Answer Date Recorded Patient Health Questionnaire-9 Score 0 02/15/2024 Patient Health Questionnaire-9 Score 0 02/15/2024 Last PHQ-9: Questionnaire Data Not on file 1 04/16/2023 Housing Stability Answer Date Recorded What is your housing situation today? I have carl melendrez 12/25/[address] you li ve. Do you have problems with any of the following? None of the above 12/25/2023 Food Insecurity Answer Date Recorded Within the past 12 months, y ou worried that your food would run out before you got money to buy more: Never True 02/15/2024 Within the past 12 months,th e food [...] Date Recorded Patient Health Questionnaire-2 Score 0 02/15/2024 Internet Access Answer Date Recorded Internet Access Q1 Yes 12/25/2023 Internet Access Q2 Not on file 12/25/2023 Comments No Sex and Gender Information Value Date Recorded Sex Assigned at Female 01/27/2022 10:15 AM EDT Legal Sex Female 10:15 AM EDT Gender Identity Female 01/27/2022 10:15 AM EDT Sexual Orientation Straight 01/27/2022 10 :15 AM EDT documented as of this encounter Plan of Treatment Not on file documented as of this encounter Visit Diagnoses Not on filedocumented in this encounter Additional Health Concerns Assessment Noted Time PHQ-9 Depression Total Score: 0 02/15/20 24 9:57 AM EST documented as of this encounter Care Teams Metrology Engineer Relationship Specialty Start Date End Date Mandie Yee FNP [address] [place] [phone] PCP - General Family Medicine 11/21/21 documented as of this encounter
--- OUTSIDE RECORDS SUMMARY | 2024-07-15 10:39 | XMS_ITS | Encounter Summary ---
Author Organization [employer] Address [address] [facility] 7t [place] [address] Care Team Providers Care Customer Sales Consultant Name Role Phone [facility] Primary Care Provider [phone] Reason for Visit * Reason Comments Annual Exam Encounter Details Date Type Department Care Team ([facility] st Contact Info) Description 07/13/2024 10:30 AM EDT Office Visit [facility] [address] [place], [place] [phone] [facility] 230 [place] [address] Chronic pain in left foot (Primary Dx); Routine screening for STI (sexually transmitted infection); Class 3 severe obesity due to excess calories with serious comorbidity and body mass index (BMI) of 50.0 to 59.9 in adult; Tinea versicolor Social History Tobacco Use Types Packs/Day Years [...] AM EDT documented as of this encounter Last Filed Vital Signs Vital Sign Reading Time Taken Comments Blood Pressure 128/84 07/13/2024 11:10 AM EDT Pulse 88 07/13/2024 10:48 AM EDT Temperature 36.8 ??C (98.3 ??F) 07/13/2024 10:48 AM E DT Respiratory Rate 22 07/13/2024 10:48 AM EDT Oxygen Saturation 98% 07/13/2024 10:48 AM EDT Inhaled Oxygen Concentration - - Weight 128 kg (282 lb 3.2 oz) 07/13/2024 10:48 A M EDT Height 157.5 cm (5' 2 ) 07/13/2024 10:48 AM EDT Body Mass Index 51.62 07/13/2024 10:48 AM EDT documented in this encounter Plan of Treatment Scheduled Orders Name Type Priority Associated Diagnoses Orde r Schedule Syphilis Screen Lab Routine Routine screening for STI (sexually transmitted infection) Expected: 07/13/2024, Expires: 07/13/2025 HIV-1/2 Antigen and Antibodies, Fourth Generation, with Reflexes Lab Routine Routine screening for STI (sexually transmitted infection) Expected: 07/13/2024 (Approximate), Expires: 07/13/2025 Chlamydia/N. Gonorrhoeae RNA, TMA, Urogenitial Microbiology Routine Routine screening for STI (sexually transmitted infection) Ordered: 07/13/2024 documented as of this encounter Visit Diagnoses Diagnosis Chronic pain in left foot- Primary Routine screening for STI (sexually transmitted infection) Screening examination for venereal disease Class 3 severe obesity due to excess calories with serious comorbidity and body mass index (BMI) of 50.0 to 59.9 in adult Tinea versicolor Pityriasis versicolor documented in this encounter Additional Health Concerns Assessment Noted Time PHQ-9 Depression Total Score: 0 02/15/20 24 9:57 AM EST documented as of this encounter Care Teams Customer Sales Consultant Relationship Specialty Start Date End Date Mandie Yee FNP [address] [place] [phone] PCP - General Family Medicine 11/21/21 documented as of this encounter
--- OUTSIDE RECORDS SUMMARY | 2024-07-15 10:39 | XMS_ITS | Encounter Summary ---
Author Organization [employer] Address [address] [facility] 7t [place] [address] Care Team Providers Care Fiscal Services Director Name Role Phone [facility] Primary Care Provider [phone] Encounter Details Date Type Department Care Team (Latest Contact Info) Description 07/11/2024 Travel Social History Tobacco Use Types Packs/Day [...] documented as of this encounter Care Teams Fiscal Services Director Relationship Specialty Start Date End Date Mandie Yee FNP [address] [place] [phone] PCP - General Family Medicine 11/21/21 documented as of this encounter
--- OUTSIDE RECORDS SUMMARY | 2024-07-15 10:39 | XMS_ITS | Encounter Summary ---
Author Organization [employer] Address [address] [facility] 7t [place] [address] Care Team Providers Care Display Screen Fabricator Name Role Phone [facility] Primary Care Provider [phone] Encounter Details Date Type Department Care Team (Late st Contact Info) Description 01/13/2024 Orders Only [facility] [address] [place], [place] [phone] [facility] 230 [place], [place] [phone] Elevated C-reactive protein (CRP) (Primary Dx); Arthralgia, unspecified joint Social History Tobacco Use Types Packs/Day Years [...] is your housing situation today? I have carlcuong melendrez 12/25/[address] you [...] on file documented as of this encounter Procedures Procedure Name Priority Date/Time Associated Diagnosis Comments C-REACTIVE PROTEIN Routine 02/15/2024 10 :40 AM EST Elevated C-reactive protein (CRP) Arthralgia, unspecified joint URIC ACID Routine 02/15/2024 10:40 AM EST Elevated C-reactive protein (CRP) Arthralgia, unspecified joint documented in this encounter Results * (ABNORMAL) C-reactive Protein (02/15/2024 10:40 AM EST) C Reactive Protein 1.45(H) < or = 0.50 mg/dL [facility] Blood Venous blood specimen / Unknown 02/15/2024 10:40 AM EST 02/15/2024 11:32 AM EST [facility] BLOOD ORDERABLES Final Re sult [facility] [address] [place] [phone] * Uric acid (02/15/2024 10:40 AM EST) Uric Acid 5.2 2.4 - 5.7 mg/dL [facility] Blood Venous blood specimen / Unknown 02/15/2024 10:40 AM EST 02/15/2024 11:32 AM EST [facility] BLOOD ORDERABLES Final Re sult [facility] [address] [place] [address] [phone] documented in this encounter Visit Diagnoses Diagnosis Elevated C-reactive protein (CRP)- Primary Arthralgia, unspecified joint documented in this encounter Additional Health Concerns Assessment Noted Time PHQ-9 Depression Total Score: 0 12/25/19 24 10:34 AM EDT documented as of this encounter Care Teams Display Screen Fabricator Relationship Specialty Start Date End Date Colquitt KP Lockwood [address] [place] [id number] PCP - General Family Medicine 11/21/21 documented as of this encounter
--- OUTSIDE RECORDS SUMMARY | 2024-07-15 10:39 | XMS_ITS | Clinical Summary ---
Author Organization [address] [facility] Address [address] [place] [address] Phone Care Team Providers Care Civil Cad Tech Name Role Phone [facility] Primary Care Provider [phone] Allergies No known active allergies Medications cyclobenzaprine (FLEXERIL) 10 mg tablet Take 1 tablet (10 mg total) by mouth 3 (three) times a day if needed for muscle spasms. Active spironolactone (ALDACTONE) 100 mg tablet Take 1 tablet (100 mg total) by mouth 1 (one) time each day. Active rizatriptan (MAXALT) 10 mg tablet Take 1 tablet (10 mg total) by mouth 1 (one) time if needed for migraine. May repeat in 2 hours if unresolved. Do not exceed 30 mg in 24 hours. Active propranolol LA (INDERAL LA) 60 mg 24 hr capsule Take 1 capsule (60 mg total) by mouth 1 (one) time each day. Do not crush, chew, or split. Active metFORMIN (GLUCOPHAGE) 500 mg tablet Take 1 tablet (500 mg total) by mouth 2 (two) times a day with meals. Active ARIPiprazole (ABILIFY) 5 mg tablet Take 1 tablet (5 mg total) by mouth 1 (one) time each day. 03/28/2024 Active DULoxetine (CYMBALTA) [address] capsule Take 1 capsule (30 mg total) by mouth daily. 10/29/2023 Active cholecalciferol (VITAMIN D-3) 50 mcg (2,000 unit) tablet Take 1 tablet (2,000 Units total) by mouth 1 (one) time each day. 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 Knee pain 02/08/2024 Migraine 02/08/2024 Obesity 02/08/2024 Prediabetes 02/08/2024 Vitamin D deficiency 02/08/2024 Tension headache 02/08/2024 Encounters Date Type Department Care Team Description 07/04/2024 Telephone Orthopedic Surgery [facility] [address] [facility] [address] [place] [phone] Glendy Pina 04/29/2024 11:30 AM EST Office Visit Orthopedic Surgery [facility] [address] [facility] [address] [place] [phone] Fariha Whitehead MD Carpal tunnel syndrome of left wrist (Primary Dx) from Last 3 Months Social History Tobacco Use Types Packs/Day Years Used Date Smoking Tobacco: Never Smokeless Tobacco: Never Alcohol Use Standard Drinks/Week Comments No 0 (1 standard drink = 0.6 oz pur e alcohol) Comments Unknown Sex and Gender Information Value Date Recorded Sex Assigned at Not on file Legal Sex Female 5:32 AM EST Gender Identity Not on file Sexual Orientation Not on file Obstetrics History Last Filed Vital Signs Vital Sign Reading Time Taken Comments Blood Pressure - - Pulse - - Temperature - - Respiratory Rate - - Oxygen Saturation - - Inhaled Oxygen Concentration - - Weight 127 kg (280 lb) 04/29/2024 11:38 AM EST Height 157.5 cm (5' 2 ) 04/29/2024 11:38 AM EST Body Mass Index 51.21 04/29/2024 11:38 AM EST Plan of Treatment Health Maintenance Due Date Last Done Comments Hepatitis B Vaccines (1 of 3 - 19+ 3-dose series) 2005 Cervical Cancer Screening: Pap Smear 12/03/2007 HIV Screening 03/02/2022 Hepatitis C Screening 03/02/2022 Social Influencers of Health Screening 03/02/2022 COVID-19 Vaccine ( season) 2023 04/01/2021, 08/31/2020, 08/10/2020 Influenza Vaccine (Season Ended) 2024 02/04/2023, 03/14/2021, 11/29/2019, Additional history exists Depression Screening 02/14/2025 02/15/2024 DTaP,Tdap,and Td Vaccines (3 - Td or Tdap) 12/19/2025 12/20/2015, 07/27/2015 Cholesterol Screening (Lipid Panel) 07/22/2027 07/21/2022 HIB Vaccines Aged Out No longer eligi ble based on patient's age to complete this topic HPV Vaccines Aged Out No longer eligi ble based on patient's age to complete this topic Hepatitis A Vaccines Aged Out No long er eligible based on patient's age to complete this topic IPV Vaccines Aged Out No longer eligi ble based on patient's age to complete this topic MMR Vaccines Aged Out No longer eligi ble based on patient's age to complete this topic Meningococcal ACWY Vaccine Aged Out N o longer eligible based on patient's age to complete this topic Meningococcal B Vaccine Aged Out No l onger eligible based on patient's age to complete this topic Pneumococcal Vaccine: Pediatrics (0 to 5 Years) and At-Risk Patients (6 to 64 Years) Aged Out No longer eligible based on patient's age to complete this topic RSV Immunization Patients Under 20 months Aged Out No longer eligible based on patient's age to complete this topic Varicella Vaccines Aged Out No longer eligible based on patient's age to complete this topic Insurance MEDICAID - [place] Care Teams Civil Cad Tech Relationship Specialty Start Date End Date [facility] [address] [phone] PCP - General Family Medicine 04/29/24
--- OUTSIDE RECORDS SUMMARY | 2024-07-15 10:39 | XMS_ITS | Encounter Summary ---
Author Organization [employer] Address [address] [facility] 7t [place] [address] Care Team Providers Care Laborer Brush Clearing Name Role Phone [facility] Primary Care Provider [phone] Reason for Visit * Reason Onset Date Comments Appointment Request 07/13/2024 Encounter Details Date Type Department Care Team ([facility] st Contact Info) Description 07/13/2024 Telephone [facility] 230 [place], [place] [phone] [facility] 230 [place] [address] Appointment Request Social History Tobacco Use Types Packs/Day Years [...] encounter Miscellaneous Notes * Telephone Encounter - Madiha Martinez - 07/13/2024 2:18 PM EDT Called PT to schedule an Appt with PCP. NA\LVM OK to book if PT calls back When: Next Available (booking for August 2024) Slot length: 15 min slot Notes: Weight Management PCP: Joselito documented in this encounter Plan of Treatment Not on file documented as of this encounter Visit Diagnoses Not on filedocumented in this encounter Additional Health Concerns Assessment Noted Time PHQ-9 Depression Total Score: 0 02/15/20 24 9:57 AM EST documented as of this encounter Care Teams Laborer Brush Clearing Relationship Specialty Start Date End Date Mandie Yee FNP [address] [place] [id number] PCP - General Family Medicine 11/21/21 documented as of this encounter
--- OUTSIDE RECORDS SUMMARY | 2024-07-15 10:39 | XMS_ITS | Clinical Summary ---
Author Organization [employer] Address [address] [facility] 7[address] [place] [address] Care Team Providers Care Human Resources Hr Representative Name Role Phone Joselito [facility] Primary Care Provider [phone] Allergies No known active allergies Medications * This document contains information received from the source organization and may not represent a complete record from that organization. albuterol 108 (90 Base) MCG/ACT inhalerIndicat ions:Acute URI Inhale 2 puffs every 4 (four) hours if needed for wheezing or shortness of breath. 18 g 1 05/30/19 23 Active DULoxetine (Cymbalta) [address] capsule Take 1 capsule (30 mg) by mouth Once per day. Do not crush or chew. 90 capsule 1 10/29/19 24 025 Active rizatriptan (Maxalt) 10 MG tabletIndicati ons:Tension headache,Migra ine without status migrainosus, not intractable, unspecified migraine type Take 1 tablet (10 mg) by mouth 1 (one) time if needed for migraine. May repeat in 2 hours if unresolved. Do not exceed 30 mg in 24 hours. 9 tablet 10/29/19 24 Active spironolactone (Aldactone) 100 MG tablet TAKE 1 TABLET BY MOUTH EVERY DAY IN THE MORNING 90 tablet 1 02/02/20 24 Active propranolol LA (Inderal LA) 60 MG 24 hr capsuleIndicat ions:Tension headache,Migra ine without status migrainosus, not intractable, unspecified migraine type Take 1 capsule (60 mg) by mouth Once per day. Do not crush, chew, or split. 90 capsule 3 05/26/19 25 028 Active metFORMIN XR (Glucophage-XR ) 500 MG 24 hr tabletIndicati ons:Prediabete s Do not crush, chew, or split. IF tolerating well OK to self increase to 1 tablet twice daily 180 tablet 3 05/26/19 25 Active Diclofenac Sodium 1 % gelIndications :Chronic pain in left foot Apply 2 g topically if needed in the morning, at noon, in the evening, and at bedtime (pain). 100 g 3 07/14/19 25 Active ibuprofen 600 MG tabletIndicati ons:Chronic pain in left foot Take 1 tablet (600 mg) by mouth every 8 (eight) hours if needed for mild pain. 30 tablet 1 07/14/19 25 Active phentermine 15 MG capsuleIndicat ions:Class 3 severe obesity due to excess calories with serious comorbidity and body mass index (BMI) of 50.0 to 59.9 in adult Take 1 capsule (15 mg) by mouth before breakfast. 30 capsule 07/14/19 25 025 Active topiramate (Topamax) 50 MG tabletIndicati ons:Class 3 severe obesity due to excess calories with serious comorbidity and body mass index (BMI) of 50.0 to 59.9 in adult Take 1 tablet (50 mg) by mouth before evening meal. 30 tablet 11 07/14/19 25 026 Active ketoconazole (NIZOral) 2 % shampooIndicat ions:Tinea versicolor Lather and apply 2-3 times per week. Leave on for 5 minutes and rinse. 120 mL 07/14/19 25 Active Diclofenac Sodium 1 % gel Apply 2 g topically if needed in the morning, at noon, in the evening, and at bedtime (pain). 100 g 3 10/29/19 24 025 Discontinued(Re order (will not trigger notification to Pharmacy)) phentermine 8 MG tabletIndicati ons:Class 3 severe obesity due to excess calories with serious comorbidity and body mass index (BMI) of 50.0 to 59.9 in adult Take 1 tablet by oral route 30 minutes before break and lunch 60 tablet 03/14/20 24 025 Discontinued psyllium (Metamucil) 48.57 % powderIndicati ons:Class 3 severe obesity due to excess calories with serious comorbidity and body mass index (BMI) of 50.0 to 59.9 in adult Take 6.18 g (3 g of fiber) by mouth 2 times daily. 1113 g 3 04/11/19 25 025 Discontinued topiramate (Topamax) 25 MG tabletIndicati ons:Class 3 severe obesity due to excess calories with serious comorbidity and body mass index (BMI) of 50.0 to 59.9 in adult Take 1 tablet (25 mg) by mouth before evening meal. 30 tablet 11 06/09/19 25 025 Discontinued(Re order (will not trigger notification to Pharmacy)) Hospital, Clinic, or Other Facility Administered Medication Ordered Dose Route Frequency Start Date End Date Status lidocaine (Xylocaine) 2 % injection 80 mgIndications:Trapezius muscle spasm 80 mg IJ Once 09/29/2023 Active Active Problems Problem Noted Date Diagnosed Date Moderate episode of recurrent major depressive d isorder 10/29/2023 Assessment & Plan (11/05/2023 12:41 PM EDT): During IB Consult Angelita presenting with depressed mood, loss of interests/pleasure , changes in sleep difficulty falling asleep, psychomotor retardation, trouble concentrating, thoughts of worthlessness or guilt, fatigue/loss of energy, inappropriate guilt , hopelessness, worthlessness , difficulty concentrating; for a period of 0-6 mo, for all symptoms in the context of unable to identify significant stressors. Angelita felt emotionally overwhelmed during session and reports symptoms have being worsening over the last two weeks. She was connected w [facility] for therapy and psychopharmacology but lost care after missing appointments. PCP will re-start medication to treat sxs (See PCP note). No specific trigger identified for sxs, pt will request time from work to take care of herself and seek out for additional support. clinician will follow-up with patient during next appointment. Information given for [facility] same-day appointment per patient's preferences. PLAN: (check all that apply) New/Additional Services needed pt prefers to utilize [facility] programs for same-day appointments. Behavioral Health Integration Plan Patient Self Plan Patient to utilize skills provided in intervention , Patient to reach out to [facility] team as needed, Comply with medication , Patient to engage in [facility] therapy , and Patient to reach out to [facility] as needed Assessment & Plan (10/29/2023 2:47 PM EDT): Evaluated by counselor today, see their note. I told her to restart duloxetine dialy and fu with PCP in 4w to adjust med,s he agreed She has infor re [facility] clinic to go make her appt (no referral needed, accepts walk ins), I told her to take a week off work to monitor med side effects, make all these appts. She feels safe at home and is able to reach out for safety, she was given crisis number as well Spondylosis of lumbar region without myelopathy or radiculopathy 10/29/2023 Assessment & Plan (10/29/2023 2:32 PM EDT): Refer to PT Advised to come to acupuncture clinic Calcaneal spur 10/29/2023 Assessment & Plan (10/29/2023 2:33 PM EDT): Pain is not improved with support insoles Refer to podiatry Plantar fasciitis of left foot 10/29/2023 Assessment & Plan (10/29/2023 2:33 PM EDT): Refer to podiatry Cervical paraspinal muscle spasm 10/29/2023 Assessment & Plan (10/29/2023 2:34 PM EDT): Advised to take tylenol prn , come to acupuncture clinic, stress management Refer to PT and fu with PCP Tension headache 08/11/2023 Assessment & Plan (10/29/2023 2:31 PM EDT): Partially improved with Toradol inj + trigger points Rx Axert sent to pharmacy as she reported significant palpitations with Imitrex Assessment & Plan (08/11/2023 3:34 PM EDT): - Toradol 30 mg IM today, can repeat 30 mg daily up to 5 days - take Tylenol + Flexeril at bedtime x 10 days - Tylenol 500 mg BID PRN pain - will refer to trigger point injections and PT Healthcare maintenance 10/15/2022 Overview (10/15/2022): Mammo: Routine Pap: 05/2022 NIL HPV neg. Followed by PATT Dwyer C-scope: Routine PHQ-9 negative History of hysterectomy for benign disease 05/29 Vitamin D deficiency 05/29/2022 Anxiety 03/19/2021 Overview (10/15/2022): ?? Previously on sertraline. Not currently ?? Established with therapist (Alok) Assessment & Plan (12/07/2023 8:35 AM EDT): During IBH Consult Angelita presenting with excessive worry/anxiety, difficulty controlling worry, anxiety/worry associated to restlessness and/or feeling keyed-up/On edge , easily fatigued , and difficulty concentrating and/or mind going blank , and sense of dread ; for a period of 0-6 mo, for most or all symptoms in the context of unable to identify significant stressors. During today's session, Angelita reports slight improvement of symptoms. Pt re-engaged in MH services with [facility] for OP individual therapy and psychiatry services. She reached out to previous providers ([facility]) and was giving urgent appointments. She's currently taking medication and reports having positive reaction from it. Angelita is also incorporating self-care into daily routine (gym/physical activity). clinician engaged patient with active/reflective listening and provided an emphatic approach. Reviewed and assessed for risk, current stressors and protective factors. clinician will be available during next medical appointment if needed. Pt will continue treatment with for MH services. Hyperhidrosis 03/19/2021 Migraine 03/19/2021 Overview (10/15/2022): ?? Propranolol for preventative therayp Assessment & Plan (10/29/2023 2:48 PM EDT): Dc Imitrex, use Axert Continue Propranolol for prophylaxis FU with PT for neck spasm. Prediabetes 03/19/2021 Overview (10/15/2022): ?? Metformin Assessment & Plan (10/29/2023 2:44 PM EDT): Doing well, A1c is at goal Encouraged to take metformin daily as it will also help with weight reduction Fu with PCP in 6m Hidradenitis suppurativa 02/07/2021 Overview (10/15/2022): ?? Followed by [facility] derm ?? Daily doxycycline Knee pain 11/22/2013 Obesity 09/16/2013 Resolved Problems Problem Noted Date Diagnosed Date Resolved Date Edema of extremity 05/29/2022 3 Backache 11/22/2013 10/15/2022 Encounters Date Type Department Care Team Description 07/13/2024 10:30 AM EDT Office Visit [facility] [address] [place] [phone] Mandie Yee FNP Chronic pain in left foot (Primary Dx); Routine screening for STI (sexually transmitted infection); Class 3 severe obesity due to excess calories with serious comorbidity and body mass index (BMI) of 50.0 to 59.9 in adult; Tinea versicolor 07/13/2024 Telephone [facility] [address] [place] [phone] Mandie Yee FNP Appointment Request 07/13/2024 Travel 07/11/2024 Travel 07/04/2024 Patient Outreach [facility] [address] [place] [id number] Mandie Yee FNP Pre-visit Planning (SDOH screening negative and tobacco screening negative) 06/10/2024 Population Health Risk Score [facility] Department [address] [id number] Provider, Population Health Generic 06/06/2024 Refill [facility] [address] [place] [address] Mandie Yee FNP Class 3 severe obesity due to excess calories with serious comorbidity and body mass index (BMI) of 50.0 to 59.9 in adult (CMS/[facility]) 05/24/2024 Refill [facility] [address] [place] [address] Regine Carrizales MD Tension headache; Migraine without status migrainosus, not intractable, unspecified migraine type; Prediabetes 05/24/2024 Refill [facility] [address] [place] [address] Mandie Yee, RN MATERNITY Prediabetes; Class 3 severe obesity due to excess calories with serious comorbidity and body mass index (BMI) of 50.0 to 59.9 in adult ([facility]) from Last 3 Months Immunizations Name Administration Dates Next Due Influenza injectable quadriv alent IIV4 with preservative 12/20/2015 Influenza injectable quadriv alent preservative free 02/04/2023,03/14/2021,11/29/2019 Tdap 12/20/2015,07/27/2015 Family History Medical History Relation Name Comments Diabetes type II Father Diabetes type II Maternal Grandmother Diabetes type II Mother Heart murmur Mother Breast cancer Neg Hx Colon cancer Neg Hx Relation Name Status Comments Father Maternal Grandmother Mother Social History Tobacco Use Types Packs/Day Years Used Date Smoking Tobacco: Never Smokeless Tobacco: Never Tobacco Cessation:Counseling Given: Not Answered Alcohol Use Standard Drinks/Week Comments Never 0 [...] t he electric, gas, oil or water [employer] threatened to shut off services in your [...] Orientation Straight 01/27/2022 10 :15 AM EDT Last Filed Vital Signs Vital Sign Reading [...] Mass Index 51.62 07/13/2024 10:48 AM EDT Plan of Treatment Health Maintenance Due Date Last Done Comments HIV Screening 1986 Family Planning (PISQ) 2001 Hepatitis C Screening 2004 Hepatitis B Vaccines (1 of 3 - 19+ 3-dose series) 2005 COVID-19 Vaccine ( season) 2023 04/01/2021, 08/31/2020, 08/10/2020 Influenza Vaccine (#1) 2023 , 03/14/2021, 11/29/2019, Additional history exists Diabetes: Hemoglobin A1C 12/13/2024 024, 07/21/2022, 06/26/2022, Additional history exists Depression Screening 02/14/2025 02/15/2024, 02/15/20 24 SDOH Screening 07/04/2025 07/04/2024 Alcohol/Substance Use Screening 07/13/2025 07/13/2024 Tobacco Screening 07/13/2025 07/13/2024 DTaP/Tdap/Td Vaccines (3 - Td or Tdap) 12/19/2025 12/20/2015, 07/27/2015 Lipid Panel 07/22/2027 07/21/2022, 01/02/2021 Zoster Vaccines (1 of 2) 2036 RSV Patients and Patients Aged 60 years or older (1 - 1-dose 75+ series) 2061 Cervical Cancer Screening Discontinued HPV/Cotest Discontinued 06/26/2022 Pap Smear Discontinued 06/26/2022 HIB Vaccines Aged Out No longer eligi [...] patient's age to complete this topic Meningococcal Vaccine Aged Out No micah marilin eligible based on patient's age to complete this topic Pneumococcal Vaccine: Pediatrics (0 to 5 Years) and At-Risk Patients (6 to 49) Years) Aged Out No longer eligible based on patient's age to complete this topic RSV under 20 months Aged Out No longe r eligible based on patient's age to complete this topic Rotavirus Vaccines Aged Out No longer eligible based on patient's age to complete this topic Procedures Procedure Name Priority Date/Time Associated Diagnosis Comments AMB REFERRAL TO RHEUMATOLOGY Routine 06/13/2024 Arthralgia, unspecified joint Elevated C-reactive protein (CRP) Positive CHAGO (antinuclear antibody) POCT GLYCATED HEMOGLOBIN, TOTAL Routine 12/14/2023 3:31 PM EDT Prediabetes LIPID PANEL, STANDARD Routine 07/21/2022 12:52 PM EDT IMAGE-GUIDED PAP W/AGE BASED SCR,W/CT/NG/TRICH Routine 06/26/2022 10:13 AM EDT Cervical cancer screening from Last 3 Months or Most Recently Relevant to Health Maintenance Results * Referral to Rheumatology (06/13/2024) [facility] OUTPATIENT REFERRAL ORDERABLE S Final Result * (ABNORMAL) POCT HGB A1C (12/14/2023 3:31 PM EDT) Hemoglobin A1C 6.1(A) 4.0 - 6.0 % QC Media Lot # [id number] Lot# Expiration Date [id number] Blood 12/14/2023 3:31 PM EDT [facility] POINT OF CARE TEST ENTER/EDIT ORDERABLES Final Result * Lipid Panel, Standard (07/21/2022 12:52 PM EDT) Triglycerides 117 mg/dL [facility] Comment:Desirable Triglyceri de: less than 150 mg/dLBorderline High Triglyceride 150-199 mg/dLHigh Triglyceride: 200-499 mg/dLVery High Triglyceride: greater than or equal to 5OO mg/dL Cholesterol 156 mg/dL [facility] Comment:Desirable Cholestero l: less than 200 mg/dLBorderline High Cholesterol: 200-239 mg/dLHigh Cholesterol: greater than 239 mg/dL LDL Cholesterol Calculated 99 mg/dl [facility] Comment:Desirable LDL: less than 100 mg/dLNear Optimal/Above Optimal LDL: 110- 129 mg/dLBorderline High LDL: 130-159 mg/dLHigh LDL: 160-189 mg/dLVery High LDL: greater than or equal to 190 mg/dL HDL Cholesterol 34 mg/dL [facility] Comment:Desirable HDL: great er than 40 mg/dL Note: This HDL assay may give artificially low results in patients with liver disease. 07/21/2022 12:5 2 PM EDT 07/21/2022 12:52 PM EDT [facility] External Provider LAB BLO OD ORDERABLES Final Result [facility] [address] [place] [phone] * Image-Guided Pap with Age-Based Screening??with CT/NG,??Trichomonas (06/26/2022 10:13 AM EDT) Comment [employer] Comment: This order for age-based cervical cancer and STI screening follows ACOG guidelines(PB 168, 140, DXN588). See individual assays for performing site location. Clinical Information: S/P HYST,[id number], [id number] [employer] LMP: NONE GIVEN [id number] Prev. PAP: NONE GIVEN [employer] Prev. BX: NONE GIVEN [employer] SOURCE: None given [employer] Statement Of Adequacy: [employer] Comment: Satisfactory for evaluation. Endocervical/transformation zone component present. Interpretation/Re sult: Negative for intraepithelial lesion or malignancy. [employer] Infection Shift in vaginal lynne suggestive of bacterial vaginosis. [employer] COMMENT: This Pap test has been evaluated with computer assisted technology. [employer] [place] [employer] Supervisor: Mile Tongal Comment: MARCOS MILLER(ASCP) CT screening location: [address] ??[phone] (Always Message) [employer] Comment: EXPLANATORY NOTE: The Pap is a screening test for cervical cancer. It is not a diagnostic test and is subject to false negative and false positive results. It is most reliable when a satisfactory sample, regularly obtained, is submitted with relevant clinical findings and history, and when the Pap result is evaluated along with historic and current clinical information. HPV nRNA E6/E7 Not Detected Not Detected [employer] Comment: Methodology: Stripper Shovel Operator-Mediated Amplification This assay detects E6/E7 viral messenger RNA (mRNA) from 14 high-risk HPV types (16,18,31,33,35,39,45,51,52,56,58,59,66,68). Cervical sources are required for HPV testing. If a vaginal source from a patient who has had a total hysterectomy with removal of cervix was submitted, please contact the testing laboratory for alternative testing options. For additional information, please refer to http://[employer]/faq/IWG626g2 (This link if provided for information/ educational purposes only.) Chlamydia trachomatis RNA, TMA, Urogenital NOT DETECTED NOT DETECTED [employer]At Neisseria gonorrhoeae RNA, TMA, Urogenital NOT DETECTED NOT DETECTED [employer] [place] [employer] (Always Message) [facility] [place] [employer] Comment: The analytical performance characteristics of this assay, when used to test SurePath(TM) specimens have been determined by [employer]. The modifications have not been cleared or approved by the FDA. This assay has been validated pursuant to the CLIA regulations and is used for clinical purposes. For additional information, please refer to https://[employer]/faq/BJT001 (This link is being provided for information/ educational purposes only.) Trichomonas vaginalis, QL, TMA, PAP Vial NOT DETECTED NOT DETECTED [employer] Comment: The analytical performance characteristics of this assay have been determined by [employer]. The modifications have not been cleared or approved by the FDA. This assay has been validated pursuant to the CLIA regulations and is used for clinical purposes. For additional information, please refer to http://[employer]/ faq/Trichomonastma (This link is being provided for information/ educational purposes only.) Cytology specimen container (physical object) 06/26/2022 10:13 AM EDT 06/27/2022 6:07 AM EDT us Liliana Dwyer [facility] CYTOLOGY ORDERABLES F inal Result [facility] [address], [place] [address] [employer] [place] [employer] [address] [place] [phone] from Last 3 Months or Most Recently Relevant to Health Maintenance Insurance [facility] C3 Care Teams Human Resources Hr Representative Relationship Specialty Start Date End Date Mandie Yee FNP [address] [place] [address] PCP - General Family Medicine 11/21/21
--- OUTSIDE RECORDS SUMMARY | 2024-07-15 10:39 | XMS_ITS | Encounter Summary ---
Author Organization [employer] Address [address] [facility] 7[address] [place] [address] Care Team Providers Care Slag Production Worker Name Role Phone [facility] Primary Care Provider [phone] Reason for Visit * Reason Onset Date Comments Med Refill 05/24/2024 Encounter Details Date Type Department Care Team (Late st Contact Info) Description 05/24/[address] [facility] [address] [place], [place] [phone] [facility] [address] [place] [address] Prediabetes; Class 3 severe obesity due to excess calories with serious comorbidity and body mass index (BMI) of 50.0 to 59.9 in adult (CMS/[facility]) Social History Tobacco Use Types Packs/Day Years [...] as of this encounter Visit Diagnoses Diagnosis Prediabetes Other abnormal glucose Class 3 severe obesity due to excess calories with serious comorbidity and body mass index (BMI) of 50.0 to 59.9 in adult documented in this encounter Additional Health Concerns Assessment Noted Time PHQ-9 Depression Total Score: 0 02/15/20 24 9:57 AM EST documented as of this encounter Care Teams Slag Production Worker Relationship Specialty Start Date End Date Mandie Yee FNP [address] [place] [phone] PCP - General Family Medicine 11/21/21 documented as of this encounter
--- OUTSIDE RECORDS SUMMARY | 2024-07-15 10:39 | XMS_ITS | Encounter Summary ---
Author Organization [facility] Address [address] [facility] 7t [place] [address] Care Team Providers Care Coal Mill Operator Name Role Phone [facility] Primary Care Provider [phone] Reason for Visit * Reason Comments Med Refill Encounter Details Date Type Department Care Team ([facility] st Contact Info) Description 09/28/[address] [facility] [address] [place], [place] [phone] [facility] [address] [place] [address] Pain of left sacroiliac joint Social History Tobacco Use Types Packs/Day Years Used Date Smoking Tobacco: Never Smokeless Tobacco: Never Alcohol Use Standard Drinks/Week Comments Never 0 (1 standard drink = 0.6 oz pur e alcohol) Comments No Sex and Gender Information Value Date Recorded Sex Assigned at Female 01/27/2022 10:15 AM EDT Legal Sex Female 10:15 AM EDT Gender Identity Female 01/27/2022 10:15 AM EDT Sexual Orientation Straight 01/27/2022 10 :15 AM EDT COVID-19 Exposure Response Date Recorded In the last 10 days, have yo u been in contact with someone who was confirmed or suspected to have Coronavirus/COVID-19? No / Unsure 09/01/2022 1:45 PM EDT documented as of this encounter Plan of Treatment Not on file documented as of this encounter Visit Diagnoses Diagnosis Pain of left sacroiliac joint documented in this encounter Additional Health Concerns Assessment Noted Time PHQ-9 Depression Total Score: 0 09/02/19 23 2:00 PM EDT documented as of this encounter Care Teams Coal Mill Operator Relationship Specialty Start Date End Date JoselitoMandieKP [address] [place] [phone] PCP - General Family Medicine 11/21/21 documented as of this encounter
--- OUTSIDE RECORDS SUMMARY | 2024-07-15 10:39 | XMS_ITS | Clinical Summary ---
Author Organization [facility] Address [address] [place] [address] Care Team Providers Care Metal Washing Machine Operator Name Role Phone Jose F Proctor Primary Care Provider [phone] Allergies No known active allergies Medications Medication Sig Dispensed Refills Start Date End Date Status ferrous sulfate 325 (65 FE) MG tablet Take 325 mg by mouth every morning with breakfast. 0 Active cholecalciferol (VITAMIN D3) 1000 units tablet Take 1,000 Units by mouth daily. 0 Active Active Problems No known active problems Social History Tobacco Use Types Packs/Day Years Used Date Smoking Tobacco: Never Smokeless Tobacco: Never Alcohol Use Standard Drinks/Week Comments No 0 (1 standard drink = 0.6 oz pur e alcohol) Sex and Gender Information Value Date Recorded Sex Assigned at Not on file Gender Identity Not on file Sexual Orientation Not on file Last Filed Vital Signs Vital Sign Reading Time Taken Comments Blood Pressure 115/60 11/23/2018 2:27 PM EDT Pulse 89 11/23/2018 2:27 PM EDT Temperature 36.4 ??C (97.6 ??F) 11/23/2018 2:27 PM ED T Respiratory Rate - - Oxygen Saturation - - Inhaled Oxygen Concentration - - Weight 101.6 kg (224 lb) 11/23/2018 2:27 PM EDT Height 157.5 cm (5' 2 ) 11/23/2018 2:27 PM EDT Body Mass Index 40.97 11/23/2018 2:27 PM EDT Plan of Treatment Health Maintenance Due Date Last Done Comments Hepatitis B Vaccines (1 of 3 - 3-dose series) 1986 Hepatitis C Screening 1986 COVID-19 Vaccine (#1) 06/02/1987 Depression Screening 1998 BMI Counseling 2004 Preventative Health Evaluation 2004 DTap / Tdap / Td (1 - Tdap) 2005 Cervical Cancer Screening (P ap Smear) 12/03/2007 Influenza Vaccine (#1) 2023 Pneumococcal Vaccine Aged Out No long er eligible based on patient's age to complete this topic RSV Ped < 20 months Aged Out No longe r eligible based on patient's age to complete this topic Care Teams Metal Washing Machine Operator Relationship Specialty Start Date End Date Jose F Proctor [address] [place] [address] PCP - General Family Medicine 11/23/18
[2024-07-15 11:45] LABS: C Reactive Protein 1.03 mg/dL (< or = 0.50); Uric Acid 6.1 mg/dL (2.4-5.7)
[2024-07-15 14:00] LABS: CT PCR NOT DETECTED (Not Detect.); NG PCR NOT DETECTED (Not Detect.)
[2024-07-16 08:10] LABS: HIV AB/AG Nonreactive (Nonreactive); HIV Num 1 0.07 S/CO (0.00-0.99)
[2024-07-16 08:36] LABS: Syphilis Screen Reactive (Nonreactive)
[2024-07-20 15:38] LABS: Anti Nuclear Antibody Screen POSITIVE (NEGATIVE)
[2024-07-24 14:47] LABS: RPR Quantitative Reactive 1:8 (Nonreactive); T.Pallidum Particle Agg Test Reactive (Nonreactive)
== END 2024-07-15 09:56 | disposition home or self-care (01) ==
LOC: HO.HHCL 09:55
PROVIDERS: Visit Provider Registered Nurse
DX: Z11.3 Encounter for screening for infections with a predominantly sexual mode of transmission (principal); M79.10 Myalgia, unspecified site; M25.542 Pain in joints of left hand; M25.541 Pain in joints of right hand
CPT/HCPCS: 36415; 84550; 86038; 86039; 86140; 86592; 86780; 87389; 87491; 87591